=== PATIENT | female | born 1965 | race Caucasian/White ===

== ENCOUNTER 2016-12-08 08:16 | Day surgery (SDC) | payer OTHER ==
[~2016-12-08] VITALS: Ht 157.5 cm; Wt 65.8 kg
[2016-12-08 08:36] VITALS: BP 119/85
[2016-12-08 18:48] VITALS: BP 118/79
== END 2016-12-08 18:35 | disposition home or self-care (01) ==
LOC: DS 08:16 → OR 12:30 → DS 12:30
PROVIDERS: Surgery
PROC: 07B50ZZ Excision of Right Axillary Lymphatic, Open Approach (ICD-10-PCS; 2016-12-08)
PROC: 0HBT0ZZ Excision of Right Breast, Open Approach (ICD-10-PCS; principal; 2016-12-08 12:30)
DX: C50.211 Malignant neoplasm of upper-inner quadrant of right female breast (principal); Z92.21 Personal history of antineoplastic chemotherapy; Z68.27 Body mass index [BMI] 27.0-27.9, adult
CPT/HCPCS: 88329; J0690; J1170; J2001; J2175; J2250; J2405; J2704; J3010; J3490; J7120; Q9968